=== PATIENT | male | born 1950 ===

== ENCOUNTER 2021-09-28 19:32 | Emergency (ER) | payer OTHER ==
[~2021-09-28] VITALS: Ht 175.3 cm; Wt 100.7 kg
[2021-09-28] MEDS ORDERED: METOPROLOL SUC100 MG (19:36)
[2021-09-28] MEDS ORDERED: AMLODIPINE BESYL5 MG (19:36)
[2021-09-28] MEDS ORDERED: ATORVASTATIN CA40 MG (19:36)
[2021-09-28] MEDS ORDERED: ENALAPRIL MALEAT5 MG (19:37)
[2021-09-28] MEDS ORDERED: CLOPIDOGREL BIS75 MG (19:37)
== END 2021-09-28 22:56 | disposition home or self-care (01) ==
LOC: ER 19:32
DX: R55 Syncope and collapse (principal); V49.88XA Car occupant (driver) (passenger) injured in other specified transport accidents, initial encounter; Y93.89 Activity, other specified; Y92.488 Other paved roadways as the place of occurrence of the external cause; Y99.8 Other external cause status